=== PATIENT | female | born 1970 | race Caucasian/White ===

== ENCOUNTER 2018-02-22 00:06 | Emergency (ER) | payer OTHER ==
[2018-02-22] MEDS ORDERED: MORPHINE SULFATE IR 15 MG TABLET PO ONE (02:21)
--- NOTE | 2018-02-22 02:28 | ER Document Report ---
ED General - General Chief Complaint: Abscess Stated Complaint: BREAST PAIN/SWOLLEN Time Seen by Provider: 02/22/18 01:01 Mode of Arrival: Ambulatory Information source: Patient Notes: 47-year-old female patient presents to emergency department complaint of left breast pain. Patient reports that the pain has been constant for the last 2 weeks with periods of intensity. Patient reports that sometimes it does feel warm however patient denies it having any redness. Patient denies any drainage. Patient denies any fevers. Patient reports that she has never had a mammogram however patient has already scheduled an appointment with Dr. Montalvo for March 22 for a breast exam and plans to have a mammogram scheduled at that time. Patient reports past medical history of hypertension, diabetes, headaches and childhood epilepsy. TRAVEL OUTSIDE OF THE [place] IN LAST 30 DAYS: No - Related Data Allergies/Adverse Reactions: ampicillin Allergy (Verified 02/22/18 00:13) egg Allergy (Verified 02/22/18 00:13) Past Medical History - General Information source: Patient - Social History Smoking Status: Never Smoker Frequency of alcohol use: None Drug Abuse: None Lives with: Alone Family History: None Patient has suicidal ideation: No Patient has homicidal ideation: No - Past Medical History Cardiac Medical History: Reports: Hx Hypertension Neurological Medical History: Reports: Other - Headaches Endocrine Medical History: Reports: Hx Diabetes Mellitus Type 2 Renal/ Medical History: Denies: Hx Peritoneal Dialysis Review of Systems - Review of Systems Constitutional: No symptoms reported EENT: No symptoms reported Cardiovascular: No symptoms reported Respiratory: No symptoms reported Gastrointestinal: No symptoms reported Genitourinary: No symptoms reported Female Genitourinary: No symptoms reported Musculoskeletal: See HPI Skin: See HPI Hematologic/Lymphatic: No symptoms reported Neurological/Psychological: No symptoms reported Physical Exam - Vital signs Vitals: Temp Pulse Resp BP Pulse Ox 97.8 F 87 16 145/79 H 98 02/22/18 00:52 02/22/18 00:52 02/22/18 00:52 02/22/18 00:52 02/22/18 00:52 - Notes Notes: PHYSICAL EXAMINATION: GENERAL: Well-appearing, well-nourished and in no acute distress. HEAD: Atraumatic, normocephalic. EYES: Pupils equal round and reactive to light, extraocular movements intact, conjunctiva are normal. ENT: Nares patent, oropharynx clear without exudates. Moist mucous membranes. NECK: Normal range of motion, supple without lymphadenopathy LUNGS: Breath sounds clear to auscultation bilaterally and equal. No wheezes rales or rhonchi. HEART: Regular rate and rhythm without murmurs ABDOMEN: Soft, nontender, nondistended abdomen. No guarding, no rebound. No masses appreciated. Female : deferred Breast: Patient's right breast with no abnormalities. Patient's left breast with multiple fibrocystic areas. Patient does have one larger area at approximately 5:00, deep within the breast that is painful with palpation. Musculoskeletal: Normal range of motion, no pitting or edema. No cyanosis. NEUROLOGICAL: Cranial nerves grossly intact. Normal speech, normal gait. Normal sensory, motor exams PSYCH: Normal mood, normal affect. SKIN: Warm, Dry, normal turgor, no rashes or lesions noted. Course - Re-evaluation Re-evalutation: 47-year-old female with complaint of left breast pain. Patient does not have any personal history of cancer nor is there any family history of any breast cancer. Patient's exam is consistent with fibrocystic areas to the left breast. Patient already has an appointment established with Dr. Montalvo for March 22 and subsequent mammogram however will refer patient to also surgical clinic as patient is having significant pain with one of the areas to the left breast specifically at the 5:00 o'clock location. There is no drainage, no erythema and no heat to the breast so low suspicion of any abscess or infection. Will give patient oral pain medications until she can meet with the surgeon for evaluation. Patient is agreeable to this plan. - Vital Signs Vital signs: Temp Pulse Resp BP Pulse Ox 98.1 F 96 18 136/78 H 97 02/22/18 02:27 02/22/18 02:27 02/22/18 02:27 02/22/18 02:27 02/22/18 02:27 Discharge - Discharge Clinical Impression: Cystic breast Qualifiers: Laterality: left Qualified Code(s): N60.12 - Diffuse cystic mastopathy of left breast Condition: Stable Disposition: HOME, SELF-CARE Additional Instructions: Breast Fibrocystic Disease You have a breast lump or cyst, which we think is most likely due to fibrocystic disease. This is very common in women and is usually a benign condition. These breast masses form under the influence of female hormones ( estrogen and progesterone). They occur most often in the upper, outer portion of the breast. Fibrocystic lumps can become more painful and tender just before your period. Most breast lumps and cysts are benign. But we want to be certain. Suspicious lumps may need a biopsy or needle aspiration. More innocent-seeming lumps may be evaluated with mammography or ultrasound. Be sure to see your doctor for follow-up care. See the doctor or return here if you develop nipple discharge or bleeding, severe pain, tenderness, redness in your breast. The lumps in your breast is rather large and since it is causing to such discomfort it is my recommendation that we send you to the surgeon for further follow-up. They may want to biopsy it or remove it. Please keep the appointment that you have with Dr. Montalvo on March 22. Take the pain medication as needed. Prescriptions: Ketorolac Tromethamine [Toradol 10 mg Tablet] 10 mg PO Q8HP PRN 4 Days #20 tablet PRN Reason: For Pain Referrals: SMOOTH MONTALVO MD [Primary Care Provider] - Follow up as needed [facility] [Provider Group] - Follow up as needed
[2018-02-22 02:30] VITALS: BP 136/78
== END 2018-02-22 02:41 | disposition home or self-care (01) ==
LOC: ER 00:06
DX: N60.12 Diffuse cystic mastopathy of left breast (principal); N64.4 Mastodynia; R51 Headache; I10 Essential (primary) hypertension; E11.9 Type 2 diabetes mellitus without complications; Z91.012 Allergy to eggs; Z88.0 Allergy status to penicillin
CPT/HCPCS: 99283

== ENCOUNTER → 2018-03-13 | Outpatient (CLI) | payer OTHER ==
--- NOTE | 2018-03-13 09:05 | RADIOLOGY REPORT (SQ) ---
EXAM DESCRIPTION: U/S NON-OB PELVIS W/O DOP COMPLETED DATE/TIME: 03/13/2018 8:36 am REASON FOR STUDY: LEIOMYOMA OF UT N64.4 MASTODYNIA D25.9 LEIOMYOMA OF UTERUS, UNSPECIFIED COMPARISON: None. TECHNIQUE: Dynamic and static grayscale images acquired of the pelvis via transabdominal approach an d recorded on PACS. Additional selected color Doppler and spectral images recorded. LIMITATIONS: Large body habitus FINDINGS: UTERUS: Uterus is 8 x 4 x 4 cm in size. A 3.5 x 3 cm posterior uterine body fibroid is segura spected. ENDOMETRIAL STRIPE: No focal or generalized thickening. No masses. 6 to 7 mm in thickness. CERVIX: No nabothian cysts. Closed, 2 cm in length. RIGHT OVARY AND DOPPLER: Normal size, 2.7 x 1.9 x 1.3 cm. No worrisome masses. Normal arterial vascul ar flow without evidence for torsion. LEFT OVARY AND DOPPLER: Normal size, 2.5 x 2.2 x 1.9 cm. No worrisome masses. Normal arterial vascula r flow without evidence for torsion. FREE FLUID: None noted. OTHER: No other significant finding. IMPRESSION: SMALL DORSAL UTERINE BODY FIBROID. OTHERWISE, UNREMARKABLE LIMITED PELVIC ULTRASOUND BY TRANSABDOMINAL TECHNIQUE. TECHNICAL DOCUMENTATION: JOB ID: [id number] [employer]- All Rights Reserved Rev Reading location - IP/workstation name: [facility]
--- NOTE | 2018-03-14 08:25 | WOMENS IMAGING REPORT ---
EXAM DESCRIPTION: BILAT DIAGNOSTIC MAMMO W/CAD; U/S BREAST UNILATERAL, COMPL COMPLETED DATE/TIME: 03/13/2018 8:33 am; 03/13/2018 9:17 am REASON FOR STUDY: MASTODYNIA; LEFT BREAST PAIN; N64.4 N64.4 MASTODYNIA D25.9 LEIOMYOMA OF UTERUS, UNSPECIFIED COMPARISON: None. TECHNIQUE: Standard craniocaudal and mediolateral oblique views of each breast recorded using digita l acquisition. Additional left breast 90 mediolateral view and left breast ultrasound performed. LIMITATIONS: None. FINDINGS: RIGHT BREAST MASSES: No suspicious masses. CALCIFICATIONS: No new or suspicious calcifications. ARCHITECTURAL DISTORTION: None. DEVELOPING DENSITY: None. ASYMMETRY: None noted. OTHER: No other significant findings. LEFT BREAST MASSES: No suspicious masses.A low-density well-circumscribed mammographic nodule is present in the l eft breast laterally about the 2-3 o'clock position, about 6 cm from the nipple. This was subsequent ly shown at ultrasound to represent a small fibroadenoma. CALCIFICATIONS: No new or suspicious calcifications. ARCHITECTURAL DISTORTION: None. DEVELOPING DENSITY: None. ASYMMETRY: None noted. OTHER: No other significant finding. Read with the assistance of CAD: .[facility] - R2 Cenova Version 1.3 .[facility] - R2 Cenova Version 1.3 .[facility] - R2 Cenova Version 2.4 .[facility] - R2 Cenova Version 2.4 .[facility] - R2 Blower Feeder Dyed Raw Stock Version 9.2 Left breast ultrasound: In the left breast 2 to 3 o'clock position, a hypoechoic solid well-circumscribed nodule with good ac oustic through transmission is present, 7 mm in size. This likely represents a fibroadenoma and cary elates with the findings on today's mammography. IMPRESSION: No mammographic evidence for malignancy right breast. No mammographic or sonographic evidence for malignancy left breast BREAST DENSITY: b. There are scattered areas of fibroglandular density. BIRAD: 2 Benign findings. RECOMMENDATION: RECOMMENDED FOLLOW UP: Please continue yearly bilateral screening mammography/tomosy nthesis in March 2019 SPECIFIC INTERVENTION/IMAGING/CONSULTATION RECOMMENDED:No additional intervention/ imaging/consultati on needed at this time. COMMUNICATION:Patient notified by letter COMMENT: The patient has been notified of the results by letter per MQSA requirements. Additional no tification policies are in place for contacting patient with suspicious or incomplete findings. Quality ID #[id number]: The [employer] recommends an annual screening mammogram for women aged 40 years or over. This facility utilizes a reminder system to ensure that all patients receive reminder letters, and/or direct phone calls for appointments. This includes reminders for routine scr eening mammograms, diagnostic mammograms, or other Breast Imaging Interventions when appropriate. Th is patient will be placed in the appropriate reminder system. The [employer] (ACR) has developed recommendations for screening MRI of the breast s in certain patient populations, to be used in conjunction with mammography. Breast MRI surveillanc e may be appropriate for women with more than 20% lifetime risk of developing breast cancer as deter mined by genetic testing, significant family history of the disease, or history of mantle radiation f or Hodgkins Disease. ACR Practice Guidelines 2008. TECHNICAL DOCUMENTATION: FINDING NUMBER: (1) ASSESSMENT: (1) JOB ID: [id number] [employer]- All Rights Reserved Reading location - IP/workstation name: [facility]
--- NOTE | 2018-03-14 08:25 | WOMENS IMAGING REPORT ---
EXAM DESCRIPTION: BILAT DIAGNOSTIC MAMMO W/CAD; U/S BREAST UNILATERAL, COMPL COMPLETED DATE/TIME: 03/13/2018 8:33 am; 03/13/2018 9:17 am REASON FOR STUDY: MASTODYNIA; LEFT BREAST PAIN; N64.4 N64.4 MASTODYNIA D25.9 LEIOMYOMA OF UTERUS, UNSPECIFIED COMPARISON: None. TECHNIQUE: Standard craniocaudal and mediolateral oblique views of each breast recorded using digita l acquisition. Additional left breast 90 mediolateral view and left breast ultrasound performed. LIMITATIONS: None. FINDINGS: RIGHT BREAST MASSES: No suspicious masses. CALCIFICATIONS: No new or suspicious calcifications. ARCHITECTURAL DISTORTION: None. DEVELOPING DENSITY: None. ASYMMETRY: None noted. OTHER: No other significant findings. LEFT BREAST MASSES: No suspicious masses.A low-density well-circumscribed mammographic nodule is present in the l eft breast laterally about the 2-3 o'clock position, about 6 cm from the nipple. This was subsequent ly shown at ultrasound to represent a small fibroadenoma. CALCIFICATIONS: No new or suspicious calcifications. ARCHITECTURAL DISTORTION: None. DEVELOPING DENSITY: None. ASYMMETRY: None noted. OTHER: No other significant finding. Read with the assistance of CAD: .[facility] - R2 Cenova Version 1.3 .[facility] Imaging - R2 Cenova Version 1.3 .[facility] Imaging - R2 Cenova Version 2.4 .[facility] - R2 Cenova Version 2.4 .[facility] - R2 Lead Java Programmer Version 9.2 Left breast ultrasound: In the left breast 2 to 3 o'clock position, a hypoechoic solid well-circumscribed nodule with good ac oustic through transmission is present, 7 mm in size. This likely represents a fibroadenoma and cary elates with the findings on today's mammography. IMPRESSION: No mammographic evidence for malignancy right breast. No mammographic or sonographic evidence for malignancy left breast BREAST DENSITY: b. There are scattered areas of fibroglandular density. BIRAD: 2 Benign findings. RECOMMENDATION: RECOMMENDED FOLLOW UP: Please continue yearly bilateral screening mammography/tomosy nthesis in March 2019 SPECIFIC INTERVENTION/IMAGING/CONSULTATION RECOMMENDED:No additional intervention/ imaging/consultati on needed at this time. COMMUNICATION:Patient notified by letter COMMENT: The patient has been notified of the results by letter per MQSA requirements. Additional no tification policies are in place for contacting patient with suspicious or incomplete findings. Quality ID #[id number]: The [employer] recommends an annual screening mammogram for women aged 40 years or over. This facility utilizes a reminder system to ensure that all patients receive reminder letters, and/or direct phone calls for appointments. This includes reminders for routine scr eening mammograms, diagnostic mammograms, or other Breast Imaging Interventions when appropriate. Th is patient will be placed in the appropriate reminder system. The [employer] (ACR) has developed recommendations for screening MRI of the breast s in certain patient populations, to be used in conjunction with mammography. Breast MRI surveillanc e may be appropriate for women with more than 20% lifetime risk of developing breast cancer as deter mined by genetic testing, significant family history of the disease, or history of mantle radiation f or Hodgkins Disease. ACR Practice Guidelines 2008. TECHNICAL DOCUMENTATION: FINDING NUMBER: (1) ASSESSMENT: (1) JOB ID: [id number] [employer]- All Rights Reserved Reading location - IP/workstation name: [facility]
== END ==
LOC: WI 07:25
PROVIDERS: ATTEND Obstetrics & Gynecology Gynecology
DX: N63.42 Unspecified lump in left breast, subareolar (principal); D25.9 Leiomyoma of uterus, unspecified
CPT/HCPCS: 76641; 76856; 77066

== ENCOUNTER 2018-08-08 11:17 | Emergency (ER) | payer OTHER ==
--- NOTE | 2018-08-08 12:53 | ER Document Report ---
ED Skin Rash/Insect Bite/Abscs - General Chief Complaint: Abscess Stated Complaint: POSSIBLE GROIN CYST Time Seen by Provider: 08/08/18 12:52 Mode of Arrival: Ambulatory Information source: Patient Notes: Patient is a 48-year-old diabetic female who presents to the ER today for left groin redness, inflammation and pain that started 2 days ago. Patient has a history of cysts so she went to her OTORHINOLARYNGOLOGIST, Dr. Montalvo, who advised her to come to the emergency department to have it evaluated. Patient states that she has no history of MRSA or abscesses that she knows of, does not remember any insect bite or injury to that area. She admits to pain, denies any fevers or chills. She does state her has a history of MRSA recently. She denies any drainage from the area. TRAVEL OUTSIDE OF THE [place] IN LAST 30 DAYS: No - Related Data Allergies/Adverse Reactions: ampicillin Allergy (Verified 08/08/18 11:46) egg Allergy (Verified 08/08/18 11:46) Past Medical History - General Information source: Patient - Social History Smoking Status: Unknown if Ever Smoked Family History: None - Past Medical History Cardiac Medical History: Reports: Hx Hypertension Endocrine Medical History: Reports: Hx Diabetes Mellitus Type 2 Renal/ Medical History: Denies: Hx Peritoneal Dialysis Review of Systems - Review of Systems Constitutional: No symptoms reported EENT: No symptoms reported Cardiovascular: No symptoms reported Respiratory: No symptoms reported Gastrointestinal: No symptoms reported Genitourinary: No symptoms reported Female Genitourinary: No symptoms reported Musculoskeletal: No symptoms reported Skin: See HPI Hematologic/Lymphatic: No symptoms reported Neurological/Psychological: No symptoms reported Physical Exam - Vital signs Vitals: Temp Pulse Resp BP Pulse Ox 97.4 F 101 H 18 142/85 H 98 08/08/18 11:49 08/08/18 11:49 08/08/18 11:49 08/08/18 11:49 08/08/18 11:49 - Notes Notes: PHYSICAL EXAMINATION: GENERAL: Well-appearing and in no acute distress. HEAD: Atraumatic, normocephalic. EYES: Pupils equal round and reactive to light, extraocular movements intact, sclera anicteric, conjunctiva are normal. NECK: Normal range of motion, supple without lymphadenopathy LUNGS: CTAB and equal. No wheezes rales or rhonchi. HEART: Regular rate and rhythm without murmurs ABDOMEN: Soft, left groin erythema and tenderness, no fluctuance or induration today. No guarding, no rebound GI/: no CVA tenderness EXTREMITIES: Normal range of motion, no pitting edema. No cyanosis. NEUROLOGICAL: Cranial nerves grossly intact. Normal sensory/motor exams. PSYCH: Normal mood, normal affect. SKIN: Warm, Dry, normal turgor, no rashes or lesions noted Course - Re-evaluation Re-evalutation: 08/08/18 18:40 Patient has an obvious cellulitis of the left groin, CT of the abdomen and pelvis with IV contrast reports no drainable abscess or fluid collection. I did start patient on Bactrim and Keflex, gave her a dose of IV Rocephin here in the emergency department. Patient to return for cellulitis check in 3 days, given information for surgeon's office to follow-up next week if she would like to in the office. - Vital Signs Vital signs: Temp Pulse Resp BP Pulse Ox 99.4 F 92 18 148/75 H 98 08/08/18 18:25 08/08/18 18:25 08/08/18 11:49 08/08/18 18:25 08/08/18 18:25 - Laboratory Result Diagrams: 08/08/18 13:51 08/08/18 15:05 Laboratory results interpreted by me: 08/08/18 08/08/18 08/08/18 13:42 13:51 15:05 WBC 14.7 H Seg Neutrophils % 82.8 H Lymphocytes % 9.5 L Absolute Neutrophils 12.2 H Sodium 136.5 L Carbon Dioxide 19 L Creatinine 0.42 L Glucose 332 H Alkaline Phosphatase 148 H Albumin 3.2 L Urine Protein 100 H Urine Glucose (UA) >=500 H Urine Ketones 20 H Urine Blood LARGE H Discharge - Discharge Clinical Impression: Cellulitis of groin, left Condition: Stable Disposition: HOME, SELF-CARE Additional Instructions: Return immediately for any new or worsening symptoms. Follow up with primary care provider, call tomorrow to make followup appointment. Come back on Sunday for a follow-up/wound check. Prescriptions: Cephalexin [Cephalexin 500 MG Tablet] 1 tab PO QID #40 tablet Metformin HCl [Glucophage 500 mg Tablet] 500 mg PO BID #60 tablet Oxycodone HCl/Acetaminophen [Percocet 5-325 mg Tablet] 1 - 2 tab PO Q4H PRN #15 tablet PRN Reason: Sulfamethoxazole/Trimethoprim [Bactrim 400-80 mg Tablet] 1 each PO BID #20 tablet Referrals: YUDI CHEUNG MD [[facility]] - Follow up as needed
[2018-08-08] MEDS ORDERED: MORPHINE SULFATE 10 MG/ML INJ IV ONE ×3 (13:00→17:55)
[2018-08-08 14:08] LABS: APPEARANCE,URINE CLOUDY; BILIRUBIN,URINE NEGATIVE (NEGATIVE); GLUCOSE, URINE >=500 mg/dL (NEGATIVE); KETONES,URINE 20 mg/dL (NEGATIVE); LEUKOCYTE ESTERASE,URINE NEGATIVE (NEGATIVE); NITRITE,URINE NEGATIVE (NEGATIVE); PROTEIN,URINE 100 mg/dL (NEGATIVE); URINE SPECIFIC GRAVITY 1.033; UROBILINOGEN,URINE NEGATIVE mg/dL (<2.0)
[2018-08-08 14:11] LABS: ABSOLUTE BASOPHILS # (AUTO) 0.1 10^3/uL (0.0-0.2); ABSOLUTE EOSINOPHILS # (AUTO) 0.1 10^3/uL (0.0-0.6); ABSOLUTE LYMPHOCYTES (AUTO) 1.4 10^3/uL (0.5-4.7); ABSOLUTE NEUT (AUTO) 12.2 10^3/uL (1.7-8.2); BASOPHILS % (AUTO) 0.6 % (0-2); EOSINOPHILS % (AUTO) 0.6 % (0-6); HEMATOCRIT 42.6 % (36.0-47.0); HEMOGLOBIN 15.1 g/dL (12.0-15.5); LYMPHOCYTES % (AUTO) 9.5 % (13-45); MEAN CORPUSCULAR HEMOGLOBIN 32.5 pg (27.0-33.4); MEAN CORPUSCULAR HGB CONC 35.5 g/dL (32.0-36.0); MEAN CORPUSCULAR VOLUME 92 fl (80-97); MONOCYTES % (AUTO) 6.5 % (3-13); PLATELET COUNT 254 10^3/uL (150-450); RED BLOOD COUNT 4.65 10^6/uL (3.72-5.28); RED CELL DISTRIBUTION WIDTH 12.3 % (11.5-14.0); SEGMENTED NEUTROPHILS % (AUTO) 82.8 % (42-78); TOTAL CELLS COUNTED % (AUTO) 100 %; WHITE BLOOD COUNT 14.7 10^3/uL (4.0-10.5)
[2018-08-08 14:11] LABS: COLOR,URINE RED
[2018-08-08 15:43] LABS: ALANINE AMINOTRANSFERASE 24 U/L (9-52); ALBUMIN 3.2 g/dL (3.5-5.0); ALKALINE PHOSPHATASE 148 U/L (38-126); ANION GAP 16 (5-19); ASPARTATE AMINO TRANSFERASE 21 U/L (14-36); BILIRUBIN,DIRECT 0.3 mg/dL (0.0-0.4); BILIRUBIN,TOTAL 0.7 mg/dL (0.2-1.3); CALCIUM 8.9 mg/dL (8.4-10.2); CARBON DIOXIDE 19 mmol/L (22-30); CHLORIDE 102 mmol/L (98-107); GLUCOSE 332 mg/dL (75-110); POTASSIUM 4.4 mmol/L (3.6-5.0); SODIUM 136.5 mmol/L (137-145); TOTAL PROTEIN 6.6 g/dL (6.3-8.2)
[2018-08-08 15:44] LABS: BLOOD UREA NITROGEN 12 mg/dL (7-20)
--- NOTE | 2018-08-08 16:59 | RADIOLOGY REPORT (SQ) ---
EXAM DESCRIPTION: CT ABD/PELVIS WITH IV ONLY COMPLETED DATE/TIME: 08/08/2018 4:43 pm REASON FOR STUDY: left groin abscess COMPARISON: None. TECHNIQUE: CT scan of the abdomen and pelvis performed using helical scanning technique with dynamic intravenous contrast injection. No oral contrast. Images reviewed with lung, soft tissue, and bone windows. Reconstructed coronal and sagittal MPR images reviewed. Delayed images for evaluation of the urinary system also acquired. All images stored on PACS. All CT scanners at this facility use dose modulation, iterative reconstruction, and/or weight based d osing when appropriate to reduce radiation dose to as low as reasonably achievable (ALARA). [facility]: Dose Right [facility]: CareDose [facility]: Dose Right [facility]: Teradose 4D [facility]: Picodeon CONTRAST TYPE AND DOSE: contrast/concentration: Isovue 350.00 mg/ml; Total Contrast Delivered: 100.0 ml; Total Saline Delivered: 72.0 ml RENAL FUNCTION: BUN 17 creatinine 0.42 RADIATION DOSE: CT Rad equipment meets quality standard of care and radiation dose reduction techniq ues were employed. CTDIvol: 17.2 - 19.4 mGy. DLP: 2070 mGy-cm.. LIMITATIONS: None. FINDINGS: LOWER CHEST: No significant findings. No nodules or infiltrates. LIVER: Normal size. No masses. No dilated ducts. SPLEEN: Normal size. No focal lesions. PANCREAS: No masses. No significant calcifications. No adjacent inflammation or peripancreatic fluid collections. Pancreatic duct not dilated. GALLBLADDER: No identified stones by CT criteria. No inflammatory changes to suggest cholecystitis. ADRENAL GLANDS: No significant masses or asymmetry. RIGHT KIDNEY AND URETER: No solid masses. No significant calcifications. No hydronephrosis or hyd roureter. LEFT KIDNEY AND URETER: No solid masses. No significant calcifications. No hydronephrosis or hydr oureter. AORTA AND VESSELS: No aneurysm. No dissection. Renal arteries, SMA, celiac without stenosis. RETROPERITONEUM: No retroperitoneal adenopathy, hemorrhage or masses. BOWEL AND PERITONEAL CAVITY: No masses or inflammatory changes. No free fluid or peritoneal masses. APPENDIX: Not identified. PELVIS: No mass. No free fluid. Normal bladder. ABDOMINAL WALL: Inflammatory changes in the left groin. No definable fluid collection is appreciated . BONES: No significant or acute findings. OTHER: No other significant finding. IMPRESSION: Inflammatory changes in the left groin. No definable fluid collection is identified. N o acute findings within the abdomen or pelvis. TECHNICAL DOCUMENTATION: JOB ID: [id number] Quality ID # [id number]: Final reports with documentation of one or more dose reduction techniques (e.g., Au tomated exposure control, adjustment of the mA and/or kV according to patient size, use of iterative reconstruction technique) 2010 [employer]- All Rights Reserved Reading location - IP/workstation name: [email or web address]
[2018-08-08] MEDS ORDERED: METFORMIN HCL 500 MG TABLET PO ONE (17:55)
[2018-08-08] MEDS ORDERED: CEFTRIAXONE 1 GM/D5W RTU 1 GM/50 ML RTUPB IV ONE (17:55)
[2018-08-08 19:24] VITALS: BP 146/72
== END 2018-08-08 19:23 | disposition home or self-care (01) ==
LOC: ER 11:17
DX: L03.314 Cellulitis of groin (principal); I10 Essential (primary) hypertension; E11.9 Type 2 diabetes mellitus without complications; Z88.0 Allergy status to penicillin; Z91.012 Allergy to eggs
CPT/HCPCS: 96376; 99284; 96375; 96365; 36415; 85025; 80053; 81001; 74177; J2270; J0696

== ENCOUNTER 2018-08-11 01:27 | Inpatient (IN) | payer OTHER ==
[2018-08-11] MEDS ORDERED: LIDOCAINE 1%/EPINEPHRINE INJ 20 ML VIAL INJ ONE (02:02)
[2018-08-11] MEDS ORDERED: HYDROMORPHONE HCL INJ/PF 2 MG/ML AMPULE IV ONE (02:02)
[2018-08-11] MEDS ORDERED: ONDANSETRON HCL INJ/PF 4 MG/2 ML SDV IV ONE (02:02)
--- NOTE | 2018-08-11 02:05 | ER Document Report ---
ED General - General Chief Complaint: Skin Problem Stated Complaint: UPPER THIGH BLEEDING/DISCHARGE Time Seen by Provider: 08/11/18 01:49 Notes: Patient is a 48-year-old female history of type 2 diabetes that comes to the emergency department for chief complaint of cellulitis. She states she was diagnosed with cellulitis of the left groin 3 days ago, placed on Bactrim and Keflex, states she has been taking these, placed on metformin as well (took first new dose tonight, was told not to take it because of recent contrast study from her visit). She reports the area has become more painful and has started draining. She reports chills, unsure of fever. Denies nausea or vomiting. Tetanus is up-to-date reportedly. Denies any other medical history. TRAVEL OUTSIDE OF THE [place] IN LAST 30 DAYS: No - Related Data Allergies/Adverse Reactions: ampicillin Allergy (Verified 08/11/18 01:29) egg Allergy (Verified 08/11/18 01:29) Past Medical History - General Information source: Patient - Social History Smoking Status: Never Smoker Frequency of alcohol use: None Drug Abuse: None Lives with: Family Family History: None - Past Medical History Cardiac Medical History: Reports: Hx Hypertension Endocrine Medical History: Reports: Hx Diabetes Mellitus Type 2 Renal/ Medical History: Denies: Hx Peritoneal Dialysis Past Surgical History: Reports: Hx Oral Surgery, Hx Orthopedic Surgery Review of Systems - Review of Systems Constitutional: See HPI EENT: No symptoms reported Cardiovascular: No symptoms reported Respiratory: No symptoms reported Gastrointestinal: No symptoms reported Genitourinary: No symptoms reported Female Genitourinary: No symptoms reported Musculoskeletal: No symptoms reported Skin: See HPI Hematologic/Lymphatic: No symptoms reported Neurological/Psychological: No symptoms reported Physical Exam - Vital signs Vitals: Temp Pulse Resp BP Pulse Ox 97.6 F 97 20 154/84 H 100 08/11/18 01:32 08/11/18 01:32 08/11/18 01:32 08/11/18 01:32 08/11/18 01:32 - Notes Notes: GENERAL: Patient moderately uncomfortable, moves with pain HEAD: Normocephalic, atraumatic. EYES: Pupils equal, round, and reactive to light. Extraocular movements intact. ENT: Oral mucosa moist, tongue midline. Oropharynx unremarkable. Airway patent. Nares patent, no nasal septal hematoma, TM's intact. NECK: Full range of motion. Supple. Trachea midline. LUNGS: Clear to auscultation bilaterally, no wheezes, rales, or rhonchi. No respiratory distress. HEART: Tachycardia, normal rhythm, no murmur ABDOMEN: Soft, non-tender. Non-distended. Bowel sounds present in all 4 quadrants. GENITOURINARY: Deferred EXTREMITIES: Moves all 4 extremities spontaneously. No edema, normal radial and dorsalis pedis pulses bilaterally. No cyanosis. BACK: no cervical, thoracic, lumbar midline tenderness. No saddle anesthesia, normal distal neurovascular exam. NEUROLOGICAL: Alert and oriented x3. Normal speech. [cranial nerves II through XII grossly intact]. PSYCH: Normal affect, normal mood. SKIN: There is erythematous, indurated, fluctuant area over the left inguinal region with erythema that extends up the left abdominal wall and down to and including the left labia with swelling. In the center of this area there is fluctuance and a tiny amount of purulent drainage. Tender over the general area. Course - Re-evaluation Re-evalutation: CBC shows leukocytosis with elevation of neutrophils but no bandemia. Patient is tachycardic on my exam, intermittently on monitoring. No hypotension. Patient reports fever at home. Patient is hyperglycemic without acidosis. A large amount of purulent drainage was expressed from the abscess. However cellulitis still spreads up to the abdominal wall and to and including the vulva on the left side, area is very tender, patient has already been on antibiotics and is concerned about going home. Will speak to hospitalist for potential admission. Discussed with Dr. Schreiber. 08/11/18 03:[address] Martinez, on-call for Dr. Lee, patient's primary provider. Because of patient's leukocytosis, fevers at home, already being on multiple antibiotics at home, the cellulitis, borderline tachycardia, and her pain with ambulation patient will be admitted for now to telemetry observation for IV antibiotics after the abscess has been drained. Patient and state satisfaction and agreement with plan. - Vital Signs Vital signs: Temp Pulse Resp BP Pulse Ox 97.6 F 97 17 145/77 H 100 08/11/18 01:32 08/11/18 01:32 08/11/18 04:01 08/11/18 04:01 08/11/18 01:32 - Laboratory Result Diagrams: 08/11/18 02:50 08/11/18 02:50 Laboratory results interpreted by me: 08/11/18 08/11/18 02:50 02:50 WBC 12.8 H Seg Neuts % (Manual) 87 H Lymphocytes % (Manual) 8 L Abs Neuts (Manual) 11.1 H Creatinine 0.46 L Glucose 312 H Procedures - Incision and Drainage left inguinal region Type: Single Anesthetic type: 1% Lidocaine w/epi mL's of anesthetic: 6 Blade size: 11 I&D procedure: Shurclens applied, Iodoform packing placed Incision Method: Incision made by scalpel Amount/type of drainage: 20 cc purulent drainage Notes: Patient requesting only a small incision. Despite small incision area drained very well, was easily explored, packing was placed because of small incision. Discharge - Discharge Clinical Impression: Cellulitis Qualifiers: Site of cellulitis: unspecified site Qualified Code(s): L03.90 - Cellulitis, unspecified Fever Qualifiers: Fever type: unspecified Qualified Code(s): R50.9 - Fever, unspecified Leukocytosis Qualifiers: Leukocytosis type: unspecified Qualified Code(s): D72.829 - Elevated white blood cell count, unspecified Uncontrolled diabetes mellitus Qualifiers: Diabetes mellitus type: type 2 Glycemic state: with hyperglycemia Qualified Code(s): E11.65 - Type 2 diabetes mellitus with hyperglycemia Condition: Stable Disposition: ADMITTED OBSERVATION Admitting Provider: Juan Lee Unit Admitted: Telemetry
[2018-08-11] MEDS ORDERED: VANCOMYCIN HCL INJ 1000 MG VIAL IV ONE (02:07)
[2018-08-11 03:14] LABS: HEMATOCRIT 43.3 % (36.0-47.0); HEMOGLOBIN 14.9 g/dL (12.0-15.5); MEAN CORPUSCULAR HEMOGLOBIN 31.1 pg (27.0-33.4); MEAN CORPUSCULAR HGB CONC 34.3 g/dL (32.0-36.0); MEAN CORPUSCULAR VOLUME 91 fl (80-97); PLATELET COUNT 316 10^3/uL (150-450); RED BLOOD COUNT 4.78 10^6/uL (3.72-5.28); RED CELL DISTRIBUTION WIDTH 12.4 % (11.5-14.0); WHITE BLOOD COUNT 12.8 10^3/uL (4.0-10.5)
[2018-08-11 03:28] LABS: ANION GAP 17 (5-19); BLOOD UREA NITROGEN 13 mg/dL (7-20); CALCIUM 9.4 mg/dL (8.4-10.2); CARBON DIOXIDE 22 mmol/L (22-30); CHLORIDE 99 mmol/L (98-107); GLUCOSE 312 mg/dL (75-110); POTASSIUM 4.2 mmol/L (3.6-5.0); SODIUM 137.5 mmol/L (137-145)
[2018-08-11 03:35] LABS: ABSOLUTE MONOCYTES # (MANUAL) 0.5 10^3/uL (0.1-1.4); ABSOLUTE NEUTROPHILS# (MANUAL) 11.1 10^3/uL (1.7-8.2); BASOPHILS % (MANUAL) 0 % (0-2); EOSINOPHILS % (MANUAL) 1 % (0-6); LYMPHOCYTES % (MANUAL) 8 % (13-45); MONOCYTES % (MANUAL) 4 % (3-13); SEGMENTED NEUTROPHILS % (MAN) 87 % (42-78); TOTAL CELLS COUNTED 100
[2018-08-11 03:36] LABS: PLATELET COMMENT ADEQUATE; RBC MORPHOLOGY COMMENT NORMO-CYTIC/CHROMIC
[2018-08-11] MEDS ORDERED: CEFEPIME 2 GM/D5W RTU 2 GM/50 ML RTUPB IV ONE (03:37)
[2018-08-11] MEDS ORDERED: ACETAMINOPHEN 325 MG TABLET PO PRN (07:08)
[2018-08-11] MEDS ORDERED: DEXTROSE 50%-WATER SYRINGE 12.5 GM/25 ML DOSE IV PRN (07:09)
[2018-08-11] MEDS ORDERED: DEXTROSE 40% GEL 15 GM TUBE PO PRN ×3 (07:09→20:47)
[2018-08-11] MEDS ORDERED: GLUCAGON,HUMAN RECOMB 1 MG INJ IM PRN (07:09)
[2018-08-11] MEDS ORDERED: DEXTROSE 50%-WATER SYRINGE 25 GM/50 ML DOSE IV PRN (07:09)
[2018-08-11] MEDS ORDERED: DEXTROSE 40% GEL 15 GM TUBE X 2 PO PRN (07:09)
[2018-08-11] MEDS: INSULIN LISPRO 100 UNIT/ML 3 ML VIAL SUBCUT PRN ×4 (09:54→22:31)
[2018-08-11] MEDS: VANCOMYCIN HCL 1,250 MG in DEXTROSE 5%-WATER 250 ML IV SCH ×2 (10:03→19:11)
[2018-08-11] MEDS: HYDROCODONE/ACETAMINOPHEN 5-325 MG TABLET PO PRN ×3 (10:19→18:54)
--- NOTE | 2018-08-11 16:12 | PDOC H&P ---
History of Present Illness Admission Date/PCP: 08/11/18 03:56 MEGAN LERMA MD History of Present Illness: JARON MARTIN is a 48 year old female of Dr Lerma who presented to the ED with complain of left groin cellulitis with abscess formation. She was evaluated in the Ed on 08/08/18 and diagnosed with Cellulitis of the left groin , prescribed Bactrim and Keflex upon discharge home. She reported persistent left groin pain with eventual drainage from her cellulitis site. She reported associated intermittent fever and chills despite taking her prescribed oral antibiotics. She denied any nausea or vomiting. No definitive abdominal pain. Her initial evaluation in the ED was significant for left groin induration and expressed drainage from the left groin abscess. She had I&D completed with gauze packing in the Ed and ED provider recommended admission for further evaluation and management. Her morbidities include Diabetes mellitus type 2 and Hypertension. Past Medical History Cardiac Medical History: Reports: Hypertension Endocrine Medical History: Reports: Diabetes Mellitus Type 2 Past Surgical History Past Surgical History: Reports: Orthopedic Surgery Social History Lives with: Family Smoking Status: Never Smoker Frequency of Alcohol Use: None Hx Recreational Drug Use: No Drugs: None Hx Prescription Drug Abuse: No - Advance Directive Resuscitation Status: Full Code Family History Family History: None Parental Family History Reviewed: Yes Children Family History Reviewed: Yes Sibling(s) Family History Reviewed.: Yes Medication/Allergy Home Medications: Loratadine [Claritin 10 mg Tablet] 10 mg PO DAILY 08/11/18 Allergies/Adverse Reactions: ampicillin Allergy (Verified 08/11/18 01:29) egg Allergy (Verified 08/11/18 01:29) Physical Exam Vital Signs: Temp Pulse Resp BP Pulse Ox 98.6 F 109 H 20 149/82 H 96 08/11/18 14:12 08/11/18 14:12 08/11/18 14:12 08/11/18 14:12 08/11/18 14:12 Intake & Output 08/10/18 08/11/18 08/12/18 06:59 06:59 06:59 Intake Total 50 Balance 50 Weight 95.5 kg General appearance: PRESENT: mild distress - due to left groin region pain, obese Head exam: PRESENT: atraumatic, normocephalic Eye exam: PRESENT: conjunctiva pink, EOMI, PERRLA. ABSENT: scleral icterus Ear exam: PRESENT: normal external ear exam Mouth exam: PRESENT: moist Respiratory exam: PRESENT: clear to auscultation kendell Cardiovascular exam: PRESENT: RRR. ABSENT: diastolic murmur, rubs, systolic murmur Vascular exam: PRESENT: normal capillary refill. ABSENT: pallor GI/Abdominal exam: PRESENT: normal bowel sounds, soft. ABSENT: distended, guarding, mass, organolmegaly, rebound, tenderness Rectal exam: PRESENT: deferred Extremities exam: ABSENT: pedal edema Musculoskeletal exam: PRESENT: normal inspection Neurological exam: PRESENT: alert, awake, oriented to person, oriented to place , oriented to time, oriented to situation, CN II-XII grossly intact. ABSENT: motor sensory deficit Psychiatric exam: PRESENT: appropriate affect, normal mood. ABSENT: homicidal ideation, suicidal ideation Skin exam: PRESENT: dry, warm, other - left groin induration with tenderness, site of I&D with pen veronica gauze packing but questionable adequacy of the incision. Results Laboratory Results: I reviewed her lab rsults on [email or web address] and form significant part of my medical decision making. Assessment & Plan - Diagnosis (1) Cellulitis of groin, left Is this a current diagnosis for this admission?: Yes Plan: Start on IV Vancomycin and Maxipime coverage. Maintain n IV fluid support (2) Abscess or cellulitis of groin Plan: Continue IV antibiotic coverage. Request surgicalist consultation to re- evaluate left groin abscess for adequacy of drainage. (3) HTN (hypertension) Qualifiers: Hypertension type: essential hypertension Qualified Code(s): I10 - Essential (primary) hypertension Is this a current diagnosis for this admission?: Yes Plan: Maintain on preadmission anti HTN medication management. (4) Uncontrolled diabetes mellitus Qualifiers: Diabetes mellitus type: type 2 Glycemic state: with hyperglycemia Qualified Code(s): E11.65 - Type 2 diabetes mellitus with hyperglycemia Is this a current diagnosis for this admission?: Yes Plan: Maintain on pre-admission diabetes mellitus medication management with Humalog insulin sliding scale therapy. Maintain on IV fluid support. - Time Time Spent: 50 to 70 Minutes Medications reviewed and adjusted accordingly: Yes Anticipated discharge: Home Within: within 48 hours - Plan Summary Plan Summary: see covering admitting attending physician coverage.
[2018-08-11] MEDS: CEFEPIME 2 GM/D5W RTU 2 GM/50 ML RTUPB IV SCH (18:41)
[2018-08-11] MEDS ORDERED: GLUCAGON,HUMAN RECOMB 1 MG INJ SUBCUT PRN (20:47)
[2018-08-11] MEDS ORDERED: DEXTROSE 50%-WATER 25 GM/50 ML DISP.SYRIN IV PRN ×2 (20:47)
--- NOTE | 2018-08-11 20:51 | PDOC CONSULTATION ---
History of Present Illness Admission Date/PCP: 08/11/18 03:56 MEGAN LERMA MD History of Present Illness: JARON MARTIN is a 48 year old female Patient reports a one-week history of left groin pain, swelling, redness; treated as an outpatient with p.o. antibiotics without improvement. Seen in emergency department yesterday and underwent a left groin abscess. Patient hospitalized overnight on intravenous antibiotics. Patient seen on rounds this evening and felt to require surgical involvement. Past Medical History Cardiac Medical History: Reports: Hypertension Endocrine Medical History: Reports: Diabetes Mellitus Type 2 Past Surgical History Past Surgical History: Reports: Orthopedic Surgery Social History Lives with: Family Smoking Status: Never Smoker Frequency of Alcohol Use: None Hx Recreational Drug Use: No Drugs: None Hx Prescription Drug Abuse: No - Advance Directive Resuscitation Status: Full Code Family History Family History: None Parental Family History Reviewed: No Children Family History Reviewed: No Sibling(s) Family History Reviewed.: No Medication/Allergy Home Medications: Loratadine [Claritin 10 mg Tablet] 10 mg PO DAILY 08/11/18 Allergies/Adverse Reactions: ampicillin Allergy (Verified 08/11/18 01:29) egg Allergy (Verified 08/11/18 01:29) Physical Exam Vital Signs: Temp Pulse Resp BP Pulse Ox 98.0 F 103 H 20 136/71 H 98 08/11/18 17:05 08/11/18 17:05 08/11/18 17:05 08/11/18 17:05 08/11/18 17:05 Intake & Output 08/10/18 08/11/18 08/12/18 06:59 06:59 06:59 Intake Total 50 300 Balance 50 300 Weight 95.5 kg General appearance: PRESENT: no acute distress Gentrourinary exam: PRESENT: other - Left groin infection appreciated. Minimal cellulitis but significant induration left groin. I&D site less than a centimeter in diameter. Packing removed, wound probed with Q-tip and repacked with quarter-inch iodoform packing times 8 inches. Assessment & Plan - Diagnosis (1) Abscess of left groin Is this a current diagnosis for this admission?: Yes Plan: Impression: Status post micro I&D left groin abscess suspicious for MRSA; improved but probably inadequate debridement Recommendations: 1. Explained to patient that reoperative surgery involving successive debridements may be required 2. Keep n.p.o.; patient to be evaluated in the morning by Dr. Solomon, surgical list on duty take patient to the operating room for additional debridement. (3) Uncontrolled diabetes mellitus Qualifiers: Diabetes mellitus type: type 2 Glycemic state: with hyperglycemia Qualified Code(s): E11.65 - Type 2 diabetes mellitus with hyperglycemia Is this a current diagnosis for this admission?: Yes
[2018-08-12] MEDS: VANCOMYCIN HCL 1,250 MG in DEXTROSE 5%-WATER 250 ML IV SCH ×3 (02:25→17:49)
[2018-08-12 05:31] LABS: HEMATOCRIT 40.8 % (36.0-47.0); HEMOGLOBIN 13.9 g/dL (12.0-15.5); MEAN CORPUSCULAR HEMOGLOBIN 30.9 pg (27.0-33.4); MEAN CORPUSCULAR HGB CONC 34.1 g/dL (32.0-36.0); MEAN CORPUSCULAR VOLUME 91 fl (80-97); PLATELET COUNT 320 10^3/uL (150-450); RED CELL DISTRIBUTION WIDTH 12.3 % (11.5-14.0); WHITE BLOOD COUNT 7.6 10^3/uL (4.0-10.5)
[2018-08-12] MEDS: CEFEPIME 2 GM/D5W RTU 2 GM/50 ML RTUPB IV SCH ×2 (05:43→17:19)
[2018-08-12 05:52] LABS: ALANINE AMINOTRANSFERASE 24 U/L (9-52); ALKALINE PHOSPHATASE 139 U/L (38-126); ANION GAP 14 (5-19); ASPARTATE AMINO TRANSFERASE 20 U/L (14-36); BILIRUBIN,DIRECT 0.3 mg/dL (0.0-0.4); BILIRUBIN,TOTAL 0.4 mg/dL (0.2-1.3); BLOOD UREA NITROGEN 9 mg/dL (7-20); CALCIUM 8.8 mg/dL (8.4-10.2); CARBON DIOXIDE 22 mmol/L (22-30); CHLORIDE 103 mmol/L (98-107); GLUCOSE 279 mg/dL (75-110); POTASSIUM 4.4 mmol/L (3.6-5.0); SODIUM 138.9 mmol/L (137-145); TOTAL PROTEIN 6.4 g/dL (6.3-8.2)
[2018-08-12] MEDS: LANSOPRAZOLE 30 MG TAB.RAP.DR PO SCH ×2 (05:52→06:44)
[2018-08-12 06:09] LABS: ABSOLUTE LYMPHOCYTES# (MANUAL) 2.1 10^3/uL (0.5-4.7); ABSOLUTE MONOCYTES # (MANUAL) 0.6 10^3/uL (0.1-1.4); ABSOLUTE NEUTROPHILS# (MANUAL) 4.7 10^3/uL (1.7-8.2); BASOPHILS % (MANUAL) 0 % (0-2); EOSINOPHILS % (MANUAL) 2 % (0-6); LYMPHOCYTES % (MANUAL) 28 % (13-45); MONOCYTES % (MANUAL) 8 % (3-13); SEGMENTED NEUTROPHILS % (MAN) 62 % (42-78); TOTAL CELLS COUNTED 100
[2018-08-12 06:11] LABS: HYPOCHROMASIA 2+; PLATELET COMMENT ADEQUATE; POIKILOCYTOSIS 1+; TEAR DROP CELLS 1+; TOXIC GRANULATION 1+; TOXIC VACUOLATION PRESENT
[2018-08-12] MEDS ORDERED: BUPIVACAINE HCL 0.5 % INJ/PF 30 ML SDV ONE (08:46)
[2018-08-12] MEDS: INSULIN LISPRO 100 UNIT/ML 3 ML VIAL SUBCUT PRN ×4 (09:35→22:05)
[2018-08-12] MEDS ORDERED: ENOXAPARIN SODIUM INJ 40 MG/0.4 ML DISP.SYRIN SUBCUT SCH (10:00)
--- NOTE | 2018-08-12 10:33 | EKG REPORT ---
SEVERITY:- ABNORMAL ECG - SINUS RHYTHM RIGHT BUNDLE BRANCH BLOCK : Confirmed by: Yoan Mas 12-Aug-2018 10:31:37
[2018-08-12 10:34] LABS: VANCOMYCIN,TROUGH 13.3 ug/mL (5.0-20.0)
--- NOTE | 2018-08-12 12:18 | Physician Advisory Note ---
Physician Advisor ProgressNote .: Pursuant to the plan for [facility], I have reviewed the medical record for this patient. Physician Advisor Statement: Pt w/uncontrolled DM (glcs 200s-300s in hospital so far), morbid obesity w/BMI 35.6, & Lt groin abscess that has failed outpt abx tx for 3 days w/Keflex & Bactrim, developing leukocytosis, tachycardia, fever/chills, & drainage. Needing more extensive I&D in OR today. Tx'ing w/IV Vanc/Maxipime. Appropriate for Inpt status. Thanks! CK
[2018-08-12] MEDS ORDERED: ONDANSETRON HCL INJ/PF 4 MG/2 ML SDV ONE (12:29)
[2018-08-12] MEDS ORDERED: FENTANYL CITRATE INJ/PF 100 MCG/2 ML AMPUL ONE (12:29)
[2018-08-12] MEDS ORDERED: MIDAZOLAM 2 MG/2 ML INJ ONE (12:29)
[2018-08-12] MEDS ORDERED: PROPOFOL INJ 200 MG/20 ML VIAL IV ONE (12:29)
[2018-08-12] MEDS ORDERED: LIDOCAINE 0.5% INJ-PF (5 MG/ML) 50 ML SDV ONE (12:36)
[2018-08-12] MEDS ORDERED: FENTANYL CITRATE INJ/PF 100 MCG/2 ML AMPUL IV PRN ×3 (13:26)
[2018-08-12] MEDS ORDERED: DIPHENHYDRAMINE HCL 50 MG/ML VIAL IV PRN (13:26)
[2018-08-12] MEDS ORDERED: MEPERIDINE HCL/PF INJ 25 MG/1 ML DISP.SYRIN IV PRN (13:26)
[2018-08-12] MEDS ORDERED: PROMETHAZINE HCL INJ 25 MG/1 ML VIAL IV PRN ×2 (13:26)
[2018-08-12] MEDS ORDERED: MORPHINE SULFATE 10 MG/ML INJ IV PRN (13:26)
--- NOTE | 2018-08-12 14:02 | OPERATIVE REPORT E ---
Operative Report NAME: JARON MARTIN : 1970 AGE: 48Y DATE OF SURGERY: 08/12/2018 ROOM: 414 PREOPERATIVE DIAGNOSIS: Abscess, left groin. POSTOPERATIVE DIAGNOSIS: Abscess, left groin. PROCEDURE: Incision and drainage of abscess left groin. SURGEON: YUDI CHEUNG M.D. ANESTHESIA: Local MAC. INDICATION: This is a 48-year-old female who noted a painful, reddish lump on the left groin and this was I and D in the emergency room last night. The patient continued to have drainage from the groin and also there appears to be just about a 5 mm incision. The patient continues to have some drainage and pains. Because of this, a bigger incision needed and better evacuate the pureed material and to pack it well. DESCRIPTION OF PROCEDURE: After adequate IV sedation, the patient was placed in supine position and the left groin prepped and draped in the usual sterile fashion. Appropriate timeout was called. Next, a local anesthesia infiltrated around the left groin abscess site. A previous small incision was then probed and there was some drainage noted and *------* obtained for C and S. Next, incision was made laterally to a distal of about 2 cm. Digital palpation of the cavity was then performed and the cavity appears to be doing down distally. Because of this, local anesthesia infiltrated distal and a 1 cm incision made making *------* incision. There is also a small amount of undermining proximally, though this was quite shallower than the distal part. Next, the cavity was then irrigated with saline solution. The hemostasis was then obtained with cautery. Next, the cavity was subsequently packed with 0.25 inch Iodoform gauze. A sterile dressing was placed over the Iodoform gauze. The patient tolerated the procedure well. Needle, instrument, and sponge counts were all correct and estimated blood loss about 5 mL. DICTATING PHYSICIAN: YUDI CHEUNG M.D. [id number] PHY#: [id number] ID: [id number] JOB#: [id number] ACCT: [id number] cc:YUDI CHEUNG M.D. >
[2018-08-12] MEDS: HYDROCODONE/ACETAMINOPHEN 5-325 MG TABLET PO PRN (17:17)
--- NOTE | 2018-08-12 20:37 | PDOC DISCHARGE SUMMARY ---
General - Admit/Disc Date/PCP Admission Date/Primary Care Provider: 08/11/18 03:56 MEGAN LERMA MD Discharge Date: 08/12/18 - Discharge Diagnosis (1) Abscess of left groin Is this a current diagnosis for this admission?: Yes (2) HTN (hypertension) Is this a current diagnosis for this admission?: Yes - Additional Information Resuscitation Status: Full Code Prescriptions: Clindamycin HCl [Cleocin 300 mg Capsule] 300 mg PO Q6 #28 capsule Home Medications: Loratadine [Claritin 10 mg Tablet] 10 mg PO DAILY 08/11/18 Clindamycin HCl [Cleocin 300 mg Capsule] 300 mg PO Q6 #28 capsule 08/12/18 Metformin HCl [Glucophage] 500 mg PO BIDACBS 08/12/18 History of Present Illness History of Present Illness: JARON MARTIN is a 48 year old female, Patient poorly compliant diabetic was admitted because of abscess of the left groin Hospital Course Hospital Course: Patient was admitted for the management of the abscess of the left groin, she was treated with IV antibiotic, she was seen by the surgeon underwent incision and drainage of the abscess. She was seen today in the hospital, she feels better Physical Exam Vital Signs: Temp Pulse Resp BP Pulse Ox 97.8 F 78 18 145/84 H 98 08/12/18 19:19 08/12/18 19:19 08/12/18 19:19 08/12/18 19:19 08/12/18 19:19 Intake & Output 08/11/18 08/12/18 08/13/18 06:59 06:59 06:59 Intake Total 50 1460 525 Output Total 1600 130 Balance 50 -140 395 Weight 95.5 kg 97.1 kg General appearance: PRESENT: no acute distress Eye exam: PRESENT: PERRLA Respiratory exam: PRESENT: clear to auscultation kendell Cardiovascular exam: PRESENT: +S1, +S2 GI/Abdominal exam: PRESENT: soft Neurological exam: PRESENT: alert Results Laboratory Results: 08/12/18 04:14 08/12/18 04:14 08/12/18 08/12/18 04:14 04:14 WBC 7.6 RBC 4.50 Hgb 13.9 Hct 40.8 MCV 91 MCH 30.9 MCHC 34.1 RDW 12.3 Plt Count 320 Seg Neutrophils % Not Reportable Lymphocytes % Not Reportable Monocytes % Not Reportable Eosinophils % Not Reportable Basophils % Not Reportable Absolute Neutrophils Not Reportable Absolute Lymphocytes Not Reportable Absolute Monocytes Not Reportable Absolute Eosinophils Not Reportable Absolute Basophils Not Reportable Sodium 138.9 Potassium 4.4 Chloride 103 Carbon Dioxide 22 Anion Gap 14 BUN 9 Creatinine 0.34 L Est GFR ( Amer) > 60 Est GFR (Non-Af Amer) > 60 Glucose 279 H Calcium 8.8 Total Bilirubin 0.4 AST 20 ALT 24 Alkaline Phosphatase 139 H Total Protein 6.4 Albumin 3.0 L Qualifiers - * PATIENT BEING DISCHARGED WITH ANY OF THE FOLLOWING DIAGNOSIS: No
[2018-08-13] MEDS: VANCOMYCIN HCL 1,250 MG in DEXTROSE 5%-WATER 250 ML IV SCH (02:36)
[2018-08-13] MEDS: CEFEPIME 2 GM/D5W RTU 2 GM/50 ML RTUPB IV SCH (05:11)
[2018-08-13] MEDS ORDERED: LANSOPRAZOLE 30 MG TAB.RAP.DR PO SCH (06:00)
[2018-08-13 08:40] VITALS: BP 151/76
[2018-08-13] MEDS: HYDROCODONE/ACETAMINOPHEN 5-325 MG TABLET PO PRN (09:01)
== END 2018-08-13 10:20 | disposition home or self-care (01) | DRG 603 ==
LOC: ER 01:27 → EH 03:56 → 4N 06:05 → OBSVTOIN 08-12 17:02
PROVIDERS: ADMIT Internal Medicine; ATTEND Internal Medicine
PROC: 0H9AXZZ Drainage of Inguinal Skin, External Approach (ICD-10-PCS; principal; 2018-08-12 13:00)
DX: L02.214 Cutaneous abscess of groin (principal); I10 Essential (primary) hypertension; E11.9 Type 2 diabetes mellitus without complications; Z79.899 Other long term (current) drug therapy; Z88.1 Allergy status to other antibiotic agents; Z91.012 Allergy to eggs
CPT/HCPCS: 36415; 400; 80048; 80053; 80202; 82962; 84703; 85025; 87040; 87070; 87075; 87205; 93005; 93010; 96365; 96366; 96368; 96375; 99285; A6266; G0378; J0692; J1170; J1815; J2250; J2405; J2704; J3010; J3370; J3490; J7060